=== PATIENT | male | born 1975 | race Caucasian/White ===

== ENCOUNTER 2019-11-18 10:55 | Emergency (ER) | payer OTHER, SELFPAY ==
[2019-11-18] MEDS ORDERED: Lidocaine 1% (PF) 30 ML VIAL ONE (11:15)
[2019-11-18] MEDS ORDERED: Bacitracin 1 PK ONE (11:23)
[2019-11-18] MEDS ORDERED: Adacel (T-DAP) 0.5 ML SYRINGE ONE (11:32)
== END 2019-11-18 11:40 | disposition home or self-care (01) ==
LOC: NAV ERS 10:55
DX: S60.455A Superficial foreign body of left ring finger, initial encounter (principal); F17.210 Nicotine dependence, cigarettes, uncomplicated; F41.9 Anxiety disorder, unspecified; W45.8XXA Other foreign body or object entering through skin, initial encounter
CPT/HCPCS: 10120; 90471; 90715; J2001

== ENCOUNTER 2022-08-23 17:50 | Emergency (ER) | payer SELFPAY ==
[2022-08-23] MEDS ORDERED: Dexamethasone 20 MG/5 ML VIAL ONE (18:13)
[2022-08-23] MEDS ORDERED: Ketorolac Tromethamine 60 MG/2 ML VIAL ONE (18:13)
[2022-08-23] MEDS ORDERED: DAPTOmycin 500 MG VIAL ONE (18:13)
== END 2022-08-23 19:00 | disposition home or self-care (01) ==
LOC: NAV ERS 17:50
DX: U07.1 COVID-19 (principal); J11.1 Influenza due to unidentified influenza virus with other respiratory manifestations; F17.210 Nicotine dependence, cigarettes, uncomplicated
CPT/HCPCS: 87081; 87430; 87804; 96372; 99283; J0878; J1100; J1885; U0003; U0005

== ENCOUNTER 2024-10-09 03:19 | Emergency (ER) | payer BC, SELFPAY ==
[2024-10-09] MEDS ORDERED: Ibuprofen 800 MG TAB ONE (03:28)
[2024-10-09] MEDS ORDERED: Azithromycin 250 MG TAB ONE (03:54)
[2024-10-09] MEDS ORDERED: Amoxicillin/Potassium Clav 875 MG TAB ONE (03:54)
== END 2024-10-09 04:41 | disposition home or self-care (01) ==
LOC: NAV ERS 03:19
DX: J18.9 Pneumonia, unspecified organism (principal); I10 Essential (primary) hypertension; F17.210 Nicotine dependence, cigarettes, uncomplicated
CPT/HCPCS: 71046; 87428; 94799